=== PATIENT | male | born 1980 ===

== ENCOUNTER 2018-04-07 12:28 | Outpatient (CLI) | payer OTHER | END 2018-04-07 12:29 | disposition home or self-care (01) | LOC: C.PAT 12:28 | DX: M51.17 Intervertebral disc disorders with radiculopathy, lumbosacral region (principal) ==

== ENCOUNTER 2018-04-23 06:21 | Inpatient (IN) | payer OTHER ==
[2018-04-07 12:58] VITALS: BMI 25.8
[2018-04-23] MEDS ORDERED: Absorbable Gelatin Sponge Size 100 ONE (07:12)
[2018-04-23] MEDS ORDERED: Bacitracin Ointment 30 GM TUBE ONE (07:13)
[2018-04-23] MEDS ORDERED: Thrombin Topical 5,000 Int Units Spray Kit ONE (07:13)
[2018-04-23] MEDS ORDERED: Bupivacaine Liposomal Inj 20 ml INJ ONE (07:14)
[2018-04-23] MEDS ORDERED: Bupivacaine HCl 0.5% PF (10 ml) Inj ONE (07:14)
[2018-04-23] MEDS ORDERED: Sodium Chloride 0.9% 20 ML IV ONE (07:14)
[2018-04-23] MEDS ORDERED: Lidocaine/Epinephrine 1% 1:100000 10 ML IJ ONE (07:14)
[2018-04-23] MEDS ORDERED: Bacitracin 50,000 UNIT in Sodium Chloride 0.9% Irrig 1,000 ML IR SCH (07:15)
[2018-04-23] MEDS ORDERED: Propofol 10 mg/ml 2,000 MG/200 ML VIAL ONE (07:47)
[2018-04-23] MEDS ORDERED: Thrombin Topical 20,000 Intl Units Spray Kit TOP ONE (07:48)
[2018-04-23] MEDS ORDERED: Succinylcholine Chloride 20 mg/ml Syr (5 ml) IV ONE (07:56)
[2018-04-23] MEDS ORDERED: Propofol 10 mg/ml Inj (20 ML) ONE (07:56)
[2018-04-23] MEDS ORDERED: Midazolam 2 MG/2 ML VIAL ONE (07:56)
[2018-04-23] MEDS: ceFAZolin 1 gm in NS 2 GM/200 ML BAG IVPB ONE ×2 (08:30→09:00)
[2018-04-23] MEDS ORDERED: Rocuronium 10 mg/ml (5 ml) ONE (10:05)
[2018-04-23] MEDS ORDERED: Labetalol 5mg/ml (4ml) ONE (10:10)
[2018-04-23] MEDS ORDERED: Propofol 10 mg/ml 1,000 MG/100 ML VIAL ONE (11:30)
--- NOTE | 2018-04-23 11:56 | HP ---
HISTORY OF PRESENT ILLNESS: Mr. Johnston is a 38-year-old gentleman who has been having low back pain for over 2 years, this is related to a construction accident occurred in 06/2016. He fell off a ladder approximately 15 feet landing on his back in an area of rock and metal. He was taken emergently to a local hospital where he was evaluated, treated and released. He injured his right shoulder in this accident that required surgery. At the present time, he is complaining of significant lumbar pain. The pain radiates down both legs, but the majority of the pain is in the back itself. He gets occasional give outs of his legs. His pain he as rated as approximately 8 on a 0/10 scale, but he has escalations that are greater than that. He notes that prolonged standing or sitting will exacerbate his pain. Treatment over the time has been physiotherapy which he went for well over a year. He also had two lumbar injections, each one had benefitted for approximately a day or two and then wore off. He was never able to return to work. PAST MEDICAL HISTORY: Significant for the shoulder injury, no ongoing medical problems. ALLERGIES: HE IS ALLERGIC TO CIPROFLOXACIN. SOCIAL HISTORY: He does not smoke, he does not drink significantly. PHYSICAL EXAMINATION: MUSCULOSKELETAL: Physical exam demonstrates 5/5 strength throughout. Sensory exam is grossly intact. Reflex is 1-2+ in both knees and ankles. Straight leg raising produces back pain approximately 35-40 degrees bilaterally and a fair amount of preservation at the lumbosacral junction, but not above. His range of motion is restricted mildly in extension, but markedly with flexion. Raising up from a flexed position is quite difficult, but his baseline knee is within normal limits. LABORATORY DATA: MRI of the lumbar spine shows disk herniation at L5-S1, but there is central protrusion into the canal. All other cephalad disks are entirely pristine. IMPRESSION AND PLAN: He was originally suggested to undergo a provocative lumbar diskogram to confirm the MRI findings i.e. L5-S1 disk as his pain generator. Unfortunately, despite many, many months' of letters and attempts, we were unable to have this diskogram authorized and it was recognized this letter was essentially never going to happen. Therefore, I had a discussion with him in 02/2018 to that effect. I told him that now after failed treatment of over a year and half, I do not believe that he will improve with anything other than definite surgical intervention. I offered him an L5-S1 diskectomy, fixation, and fusion with the understanding that it was possible that the L5-S1 disk again suspected on the MRI was not in fact his pain generator. He understood that we would not be able to get any more information, do any more testing etc, but we are mitigating the L5-S1 disk generating assumption on the MRI and localization of his findings of L5-S1 level. The nature of this procedure i.e. L5-S1 diskectomy, interbody fusion, segmental pedicle screw fixation, posterolateral fusion with iliac autograft were explained to him at length though a test borer helper, we discussed the alternatives, we discussed the fact that the operation could not be deemed absolutely necessary/life permanent threatening. We discussed potential risks, complications, realistic chances of success, recovery time, and long-term outlook. All his questions were understood. He fully understood with the above and now being admitted for this procedure. Parish Galan MD
[2018-04-23] MEDS: HYDROmorphone 0.5 mg/0.5 ml ISec IVP PRN ×3 (13:05→13:30)
[2018-04-23] MEDS ORDERED: Ondansetron Hcl 2 mg/2.5 ml Oral Sol PO PRN (13:13)
[2018-04-23] MEDS: Potassium Ch 20mEq in D5-1/2NS 1,000 ML IV SCH (14:00)
--- NOTE | 2018-04-23 15:07 | RAD ---
Date of service: 04/23/2018 PROCEDURE: Intraoperative Fluoroscopy. HISTORY: DISC DISORDER WITH RADICULOPATHY LUMBAR SACRUM REGION FINDINGS: Fluoroscopic assistance was provided. Fluoroscopy time = 45.3 sec. Radiation dose = 18.36 mGy. Please refer to the operative report from ALBERTINA Perez.
[2018-04-23 17:19] VITALS: RESP 20
[2018-04-24] MEDS ORDERED: oxyCODONE 20 mg ER Tab (oxyCONTIN) PO STA (00:41)
[2018-04-24] MEDS: Oxycodone/Acetaminophen 5/325 mg Tab PO PRN ×4 (02:09→17:50)
[2018-04-24] MEDS ORDERED: Oxycodone/Acetaminophen 5/325 mg Tab PO STA (07:54)
[2018-04-24] MEDS ORDERED: Oxycodone/Acetaminophen 5/325 mg Tab PO ONE (07:58)
[2018-04-24] MEDS: Potassium Ch 20mEq in D5-1/2NS 1,000 ML IV SCH ×2 (08:29→20:59)
--- NOTE | 2018-04-24 09:20 | CON ---
DATE: 04/23/2018 UROLOGY CONSULTATION REQUESTED BY: Parish Galan MD FILLED BY: Shiloh Lyman MD REASON FOR CONSULTATION: Inability to have Andres catheter placed, hematuria. HISTORY OF PRESENT ILLNESS: The patient is a 38-year-old male. I was called in the operating room because a Andres catheter was unable to be placed. The catheter was introduced apparently, and reportedly in an atraumatic fashion, all the way to the of the catheter. However, no urine returned. Catheter was readjusted. Thereafter, there was blood noted from the urethra. The patient has no reported urologic history. The patient is admitted for lumbar laminectomy. The patient is reportedly, otherwise, well. There is no history as best as I can obtain at present regarding previous urolithiasis or urinary tract infection or difficulty voiding. PHYSICAL EXAMINATION: GENERAL: The patient is a well-developed, well-nourished middle-aged male, appearing his stated age. ABDOMEN: Soft. There is no bladder distention to palpation or percussion. GENITALIA: Without inflammation. Testes and scrotum were normal. The phallus is normal. There is blood at the urethral meatus. I performed a bladder ultrasound. Bladder distention was noted to a volume of approximately 300 mL. I then performed a catheterization. I first attempted a 14-Omani Coude tip Adnres catheter. I was unable to negotiate the catheter into the bladder. Thereafter, I introduced a 12-Omani catheter into the bladder. The urine was at first demonstrated pink urine. Thereafter, the urine cleared. I sent the urine for urine culture. I secured the catheter in place. PLAN/RECOMMENDATIONS: Maintain Andres catheter for approximately 2 to 3 days. When the patient is up and about and ambulating and tolerating diet well and moving bowels, I recommend a trial of voiding and catheter removal. Further therapy to follow according to the patient's clinical course. Thank you for recommending the patient for urology consultation. Shiloh Lyman MD cc: Parish Galan MD
[2018-04-24] MEDS: oxyCODONE 10 mg ER Tab (oxyCONTIN) PO SCH ×2 (09:51→21:58)
[2018-04-24] MEDS ORDERED: oxyCODONE 10 mg ER Tab (oxyCONTIN) PO SCH (10:00)
--- NOTE | 2018-04-24 10:58 | CP.PCM.PN ---
Subjective - Date & Time of Evaluation Date of Evaluation: 04/24/18 Time of Evaluation: 10:57 - Subjective Subjective: POD 1 c/o sever lbp and upper thigh pain denies numbness st 5/5 adjusted meds adv act Objective - Vital Signs/Intake and Output Vital Signs (last 24 hours): Temp Pulse Resp BP Pulse Ox 98.2 F 79 20 108/67 96 04/24/18 08:39 04/24/18 08:39 04/24/18 08:39 04/24/18 08:39 04/24/18 08:39 Intake and Output: 04/24/18 04/24/18 06:59 18:59 Intake Total 200 Output Total 2950 Balance -2750 - Medications Medications: Current Medications Acetaminophen (Tylenol 325mg Tab) 650 mg PO Q6 PRN PRN Reason: Fever >100.4 F Docusate Sodium (Colace) 100 mg PO BID [facility] Last Admin: 04/24/18 09:51 Dose: 100 mg Potassium Chloride/Dextrose/Sod Cl (Potassium Chl 20 Meq In D5-1/2ns) 1,000 mls @ 100 mls/hr IV .Q10H [facility] Last Admin: 04/24/18 08:29 Dose: 100 mls/hr Influenza Virus Vaccine (Flucelvax Quad [id number] Syr) 60 mcg IM .ONCE ONE Stop: 04/25/18 10:01 Ondansetron HCl (Zofran) 4 mg PO Q6H PRN PRN Reason: Nausea/Vomiting Oxycodone HCl (Oxycontin Extended Release Tab) 30 mg PO Q12H [facility] Stop: 04/27/18 10:01 Last Admin: 04/24/18 09:51 Dose: 30 mg Oxycodone/Acetaminophen (Percocet 5/325 Mg Tab) 2 tab PO Q4H PRN PRN Reason: Pain Stop: 04/27/18 08:09 Pneumococcal Polyvalent Vaccine (Pneumovax 23 Vaccine) 0.5 ml IM .ONCE ONE Stop: 04/25/18 10:01
[2018-04-25] MEDS: Oxycodone/Acetaminophen 5/325 mg Tab PO PRN ×5 (00:09→17:17)
[2018-04-25] MEDS: Potassium Ch 20mEq in D5-1/2NS 1,000 ML IV SCH ×2 (06:00→15:30)
--- NOTE | 2018-04-25 09:36 | CP.PCM.PN ---
Subjective - Date & Time of Evaluation Date of Evaluation: 04/25/18 Time of Evaluation: 09:33 - Subjective Subjective: SPINE - POD #2 Pt sitting at side of bed. Being seen by PT. Did bed to chair transfer yesterday. For amb today. [place] dizzy upon first sitting up but better now. Still c/o pain. VSS. Temp 98-99. Neuro grossly intact. Dressing clean and dry. Plan: Pt lives in 2 story walk-up. Will need rehab placement, which is PT rec as well. Advised Soc Service. Hopeful d/c in am if bed available. Objective - Vital Signs/Intake and Output Vital Signs (last 24 hours): Temp Pulse Resp BP Pulse Ox 97.3 F L 73 20 105/69 98 04/25/18 07:00 04/25/18 07:00 04/25/18 07:00 04/25/18 07:00 04/25/18 07:00 Intake and Output: 04/25/18 04/25/18 06:59 18:59 Output Total 2200 Balance -2200 - Medications Medications: Current Medications Acetaminophen (Tylenol 325mg Tab) 650 mg PO Q6 PRN PRN Reason: Fever >100.4 F Docusate Sodium (Colace) 100 mg PO BID [facility] Last Admin: 04/24/18 17:50 Dose: 100 mg Potassium Chloride/Dextrose/Sod Cl (Potassium Chl 20 Meq In D5-1/2ns) 1,000 mls @ 100 mls/hr IV .Q10H [facility] Last Admin: 04/25/18 06:00 Dose: 100 mls/hr Influenza Virus Vaccine (Flucelvax Quad [id number] Syr) 60 mcg IM .ONCE ONE Stop: 04/25/18 10:01 Ondansetron HCl (Zofran Tab) 4 mg PO Q6H PRN PRN Reason: Nausea/Vomiting Oxycodone HCl (Oxycontin Extended Release Tab) 30 mg PO Q12H [facility] Stop: 04/27/18 10:01 Last Admin: 04/24/18 21:58 Dose: 30 mg Oxycodone/Acetaminophen (Percocet 5/325 Mg Tab) 2 tab PO Q4H PRN PRN Reason: Pain Stop: 04/27/18 08:09 Last Admin: 04/25/18 08:23 Dose: 2 tab Pneumococcal Polyvalent Vaccine (Pneumovax 23 Vaccine) 0.5 ml IM .ONCE ONE Stop: 04/25/18 10:01
[2018-04-25] MEDS: oxyCODONE 10 mg ER Tab (oxyCONTIN) PO SCH (09:46)
[2018-04-25] MEDS ORDERED: Pneumococcal 23-Valent Vaccine IM ONE (10:00)
[2018-04-25] MEDS ORDERED: Influenza Vaccine 60 mcg/0.5 mL SYR (4YR UP) IM ONE ×2 (10:00→12:26)
[2018-04-25 17:03] VITALS: BP 109/70; PULSE 64; TEMP 97.9; O2SAT 99
--- NOTE | 2018-04-28 07:39 | OP ---
PROCEDURE DATE: 04/23/2018 PREOPERATIVE DIAGNOSIS: Lumbar disc derangement, L5-S1. POSTOPERATIVE DIAGNOSIS: Lumbar disc derangement, L5-S1. PROCEDURE: L5-S1 diskectomy, interbody fusion, segmental pedicle screw fixation, and posterolateral fusion with iliac autograft. SURGEON: Parish Galan MD CO-SURGEON: Kervin Wilson MD ANESTHESIA: General endotracheal. ESTIMATED BLOOD LOSS: 450 mL, 200 mL returned via Cell Saver. COMPLICATIONS: None. JUSTIFICATION: The patient is status post accident ever since when he is suffering with severe low back pain. MR documented disc derangement at L5-S1 with all normal discs cephalad. He was ideally suggested to undergo provocative lumbar diskography, but this was denied and it was clear that it was never going to be performed. Thus, after he failed the rather extensive conservative treatment, I offered him the possibility of performing L5-S1 diskectomy, decompression fixation and fusion. I emphasized to him that this was a presumed diagnosis on the basis of the MRI that ideally we would have a definitive diskography to delineate the 5-1 level as his pain generator, but as this was not possible, I gave him his option of basing this solely on the MRI. This was fully explained to the patient. The nature of the procedure including potential risks, complications, realistic chance of success, recovery time were discussed with him at length. All the above was done through a endless belt finisher. He fully understood all the above and elected to proceed as offered. DESCRIPTION OF PROCEDURE: The patient was taken to the operating room. He was hooked up to neurophysiological monitoring, carefully intubated and anesthetized. He was placed on the OR table in a prone position on a Lucho frame. Care was taken to protect his face, eyes, endotracheal tube and all bony prominences. The entire low back region was scrubbed, painted and draped in usual sterile manner. Incision was localized with lateral fluoroscopy. The incision was traced out over the L5 and S1 spinous processes. After prepping and draping, the incision was made with a #10-blade knife, carried down to the level of the fascia. The Bovie cautery was used to incise the fascia, strip the paraspinal muscles off the spinous processes and lamina of L5 and S1. Confirmatory x-ray was taken. The exposure was widened out laterally bilaterally to expose the L5 transverse processes, the pars, the entire 5-1 facet and the sacral ala. Bleeding controlled throughout with the Bovie cautery and thrombinated powdered Gelfoam. At this point, attention was directed to bone graft harvestation. A 5-gauge trocar was inserted directly into the right superior posterior iliac crest. Approximately, 90 mL of bone marrow was then aspirated. This was then spun down to obtain the bone marrow mesenchymal cells and later used in the fusion process. The decompression was begun by removing the inferior spinous process of L5 and the superior of S1. The L5 lamina was then thinned down with a Leksell. All this bone was harvested and later used in the fusion. A wide laminotomy was then performed with the use of high-speed drill, various size Kerrisons to widely expose the L5-S1 level. Generous medial facetectomy was performed laterally bilaterally. Foraminotomy was performed at the exiting 5 roots. The S1 nerve roots were unroofed and traced all the way through the level of the S1 pedicle. At this point, the diskectomy was begun by gently retracting the left S1 nerve root medially. The disc was then incised and grossly emptied of disc material with the use of pituitary rongeurs and curettes. Then, 8 through 12 mm scrapers were used. It was felt that the 12 mm was just beginning to dig into the endplate above and below, so we stopped there. All disc material and annulus were removed with pituitary rongeurs. Subsequently, various sized and shaped large curettes were used to complete the decortication. Lastly, a large downbiting curette was used to address and remove the central herniation by forcing it forward into the disc space and then removing it with straight and upbiting pituitary rongeurs. This identical procedure was performed on the patient's right side, after which all bone grafting material was liberally packed into the disc space. This included chopped up products of the decompression along with additional marrow impregnated allograft as well as some marrow impregnated sponges. We then tapped a 9 x 11 trapezoidal carbon-fiber fusion cage filled with bone grafting material into the interspace until it was well seated and countersunk. This was confirmed both visually and fluoroscopically. We then placed the identical amount of graft and the interbody fusion cage on the left side and again visual inspection, lateral fluoroscopy confirmed super position of both of these implants. At this point, we used the high-speed drill to decorticate the lateral gutters. This included the transverse processes, lateral pars, facet, lateral facet and sacral ala. We now turned our attention to placing of the pedicular screws. Using contralateral fluoroscopy as well as visual inspection, we identified the pedicular entrance. The cortical bone was then drilled, a gearshift passed down the barrel of the pedicle into the vertebral body. A ball-tip probe was used to sound the passage way to ensure that there was bony integrity throughout and then the appropriate-sized screw was placed. Additionally, the gearshift and screws were all stimulated with electrical current. No screw elicited any EMG activity less than 20 mA except for the left S1 screw which only stimulated once it perforated the anterior sacrum, up until that point, it also did not elicit any EMG activity above 20 mA. We then checked an AP fluoroscopy as well and all four screws looked in good position. We then placed the appropriate-sized gail in the two screw head receptacles on each side. Locking nuts were placed and torque-wrenched tight. We then placed the appropriate-sized cross connector and torque-wrenched tight its three set points. Final AP and lateral x-ray confirmed super position of the entire construct. We then layed all remaining bone grafting material as reference above, packed solidly into the lateral gutters. It was ensured that there was no foreign matter, bone material, etc., in and around the thecal sac. This was then coated with a layer of thrombinated Gelfoam followed by a layer of solid Gelfoam. The muscle was reapproximated using interrupted 0 Vicryl, the fascia closed using a tight interrupted 0 Vicryl stitch. The muscles were infiltrated with long-acting local anesthetic. Subcu closed in two separate layers of interrupted inverted 2-0 Vicryl. The skin closed with a running 3-0 Monocryl stitch, benzoin and Steri-Strips. A dressing was applied. The patient was turned back onto a supine position on a stretcher, easily extubated, noted to be moving all groups of both lower extremities with excellent strength on his way to the recovery room. All counts were correct. There were no complications. Parish Galan MD [facility] # [id number]
--- NOTE | 2018-04-28 07:42 | OP ---
PROCEDURE DATE: 04/23/2018 PREOPERATIVE DIAGNOSIS: Disk derangement, L5-S1. POSTOPERATIVE DIAGNOSIS: Disk derangement, L5-S1. OPERATION: 1. Posterior lumbar interbody and lateral fusion, L5-S1. 2. Use of intervertebral devices. 3. Use of nonsegmental hardware. 4. Use of autograft by means of bone marrow aspiration. SURGEON: Kervin Wilson MD CO-SURGEON: Parish Galan MD ANESTHESIA: General endotracheal tube intubation. DESCRIPTION OF PROCEDURE: The patient was brought to the operating room, and general anesthesia was achieved. Spinal cord monitor leads were placed throughout the patient's body. Real-time monitoring was done by a ski technician in the room as well as remote monitoring was done by a physician. Intravenous antibiotics were administered. Sequential compression boots were placed to each of the patient's legs. A Andres catheter was attempted to be inserted, but some type of stricture obstruction was encountered. Therefore, everything was put on hold. Dr. Lyman of Urology was contacted. He came into the operating room to perform the Andres insertion. He will dictate that part of the procedure separately. After the Andres was inserted, the patient was then gently transferred onto the operating room table and placed prone on a Lucho frame keeping his abdomen free from pressure anteriorly. Care was taken to protect the elbows and knees from pressure points. A sterile drape was used to seal off the patient's perineal region from the operative field, and his back was sterilely prepped and draped. Lidocaine 1% with epinephrine was used to infiltrate the site for the incision as located under fluoroscopy. An incision was then made sharply in the midline, taken out subcutaneous tissue using sharp and blunt dissection. Hemostasis achieved using electrocautery. The fascia was divided and stripped laterally off the spinous processes and lamina out to the level of the L5-S1 facet joints along with the transverse processes of L5 and the sacral ala on each side. Fluoroscopic views verified we were at the appropriate level. A Leksell rongeur was used to remove the spinous process and lamina at that site, and then the laminectomy carried out with Kerrison rongeurs. This was done in a caudal and cephalad fashion and then carried out laterally making sure there is enough room at the level of the disk space to be able to insert the intervertebral devices subsequently. Hemostasis achieved with thrombinated Gelfoam powder as well as bipolar cautery. At that time, a trocar was placed the engraver steel plate right ilium, and 90 mL of bone marrow was aspirated. This was sterilely passed to the ski technician who processed it through the harvest system and returned the collected mesenchymal stem cells to the OR table. These stem cells were then used to process through the IC chamber as well as soaked strips and cubes of Conform sponge. Thrombinated Gelfoam powder was used for hemostasis at the donor site. At that time, the needle was placed in the L5-S1 disk, and fluoroscopic view confirmed we were at the appropriate level. The annulus was then sharply incised, and disk material was removed with the endplate marquita up to including a size-11 along with the pituitary rongeur and the ring and spoon curettes. Once the endplates were cleared, we then moved to the opposite side where the annulus again was incised, and the remaining disk material was removed with the pituitary rongeur, endplate marquita, as well as the ring and spoon curettes. At that time, the bone grafting substrate which consisted of the patient's laminar bone along with the IC chamber bone and Optium putty which had been combined were then packed into the disk space with the marrow-soaked cubes. A 9 x 11 cage packed with graft was then tamped into place and countersunk. We then moved to the opposite side, and any remaining disk material was removed. Then, the remaining disk space was packed with the bone grafting substrate as well as the marrow-soaked cubes and then another 9 x 11 cage packed with the graft was tamped into place and countersunk. Visually, they appeared to be in good position. At that time, the high-speed drill was used to decorticate the transverse processes of L5 on each side as well as sacral ala along with the L5-S1 facet joints. Baseline testing was done to demonstrate that the electrophysiologic monitoring was functioning as well as having the proper laterality. A high-speed drill was used to create the entry point for the right L5, screw was located under fluoroscopy. The gearshift tool was used to create the channel through the pedicle again under fluoroscopic guidance, and the ball-tip probe was used to confirm bony integrity. A 6.0 x 50 mm screw was inserted on the right side. Similar technique was used on the left side with the drill, gearshift tool, the ball-tip probe, and a 45 mm x 6.0 screw was inserted on the left. Stimulation of the gearshift tool on each side as well as the screws themselves revealed no electrophysiologic abnormalities. We then moved down to the sacral level where again a similar technique was used under fluoroscopic guidance with the drill, gearshift tool, and ball-tip probe, and 7.0 x 35 mm screws were inserted on each side. Electrophysiologic simulation revealed no abnormalities. An AP view was then taken which showed the screws to be in acceptable position. A 40-mm precut lordotic gail was used to connect the screws on the left a 45 mm gail on the right. The caps were properly tightened and torqued. The midline was irrigated with antibiotic solution, and hemostasis achieved with bipolar cautery as well as thrombinated Gelfoam powder. A large piece of solid Gelfoam was used to cover the exposed neural elements. A #7 matrix cross-link was used to connect the two rods to add rotational stability. The remaining bone grafting substrate along with the marrow-soaked strips of Conform were packed laterally to bridge the decorticated surfaces. Final lateral and AP fluoroscopic views showed excellent position of the intervertebral devices on the hardware. The wound was then closed in layers with interrupted sutures of 0 Vicryl for the muscle and fascia. The subcutaneous tissue was copiously irrigated with antibiotic solution. Then, 20 mL of Exparel diluted with 20 mL of saline as well as 20 mL of 0.5% Marcaine were injected to the paraspinal tissues to help with postoperative pain relief. The subcutaneous tissue was approximated by interrupted sutures of 2-0 Vicryl and the skin with a running subcuticular suture of 3-0 Monocryl. Steri-Strips and sterile dressing were applied. The patient was gently transferred back onto his bed in the supine position. He was awakened and extubated. He was taken to recovery room in stable condition, having tolerated the procedure well. He is actively moving all extremities at the time of the transfer, and no permanent electrophysiologic abnormalities were noted at the completion of the case. He had an estimated blood loss of 450 mL. He received 1800 mL of crystalloid during the surgery as well as 220 mL back from the Cell Saver. He had a urine output of 300 mL over the course of the operation. Kervin Wilson MD [facility] # [id number]
== END 2018-04-25 20:30 | DRG 460 ==
LOC: C.9S 06:21 → C.6T 14:11
PROVIDERS: ADMIT Neurological Surgery; ATTEND Neurological Surgery
PROC: 0SB40ZZ Excision of Lumbosacral Disc, Open Approach (ICD-10-PCS; 2018-04-23)
PROC: 07DR3ZZ Extraction of Iliac Bone Marrow, Percutaneous Approach (ICD-10-PCS; 2018-04-23)
PROC: BT40ZZZ Ultrasonography of Bladder (ICD-10-PCS; 2018-04-23)
PROC: 0T9B70Z Drainage of Bladder with Drainage Device, Via Natural or Artificial Opening (ICD-10-PCS; 2018-04-23)
PROC: 0SG3071 Fusion of Lumbosacral Joint with Autologous Tissue Substitute, Posterior Approach, Posterior Column, Open Approach (ICD-10-PCS; principal; 2018-04-23 07:30)
DX: M51.27 Other intervertebral disc displacement, lumbosacral region (principal); N32.89 Other specified disorders of bladder; W11.XXXS Fall on and from ladder, sequela